=== PATIENT | female | born 1995 | race African-American/Black ===

== ENCOUNTER → 2017-09-22 | Outpatient (CLI) | payer OTHER ==
[2017-09-22 13:45] LABS: BASO % 0.4 % (0.0-1.0); EOS % 0.5 % (0.0-3.0); IMMATURE GRANULOCYTE % 0.2 % (0-0); LYMPH # 1.8 10^3/uL (1.5-6.5); LYMPH % 21.4 % (24.0-44.0); MEAN CORPUSCULAR HEMOGLOBIN 29.9 pg (27.0-33.0); MEAN CORPUSCULAR HGB CONC 33.7 g/dl (32.0-36.5); MEAN CORPUSCULAR VOLUME 88.7 fl (80.0-96.0); MONO # 0.6 10^3/uL (0.0-0.8); MONO % 7.3 % (0.0-5.0); NEUTROPHILS # 5.8 10^3/uL (1.8-7.7); NEUTROPHILS % 70.2 % (36.0-66.0); PLATELET COUNT, AUTOMATED 231 10^3/uL (150-450); RED CELL DISTRIBUTION WIDTH 11.9 % (11.5-14.5)
[2017-09-22 14:35] LABS: HBsAg Prenatal NEGATIVE (NEGATIVE)
[2017-09-24 10:28] LABS: WHITE BLOOD COUNT 8.3 10^3/uL (4.0-10.0)
== END ==
LOC: M LAB 12:44
PROVIDERS: ATTEND Specialist
DX: Z3A.14 14 weeks gestation of pregnancy (principal)

== ENCOUNTER → 2017-10-10 | Outpatient (CLI) | payer OTHER ==
[2017-10-10 18:56] LABS: ALT/SGPT 9 U/L (12-78); AST/SGOT 4 U/L (7-37); BILIRUBIN,TOTAL 0.2 MG/DL (0.2-1.0); CREATININE FOR GFR 0.43 MG/DL (0.55-1.02); GLOMERULAR FILTRATION RATE > 60.0 (>60); URIC ACID 2.9 MG/DL (2.6-6.0)
== END ==
LOC: M SMT 14:53
PROVIDERS: ATTEND Specialist
DX: Z34.82 Encounter for supervision of other normal pregnancy, second trimester (principal)

== ENCOUNTER → 2017-10-17 | Outpatient (CLI) | payer OTHER ==
--- NOTE | 2017-10-17 17:17 | REP ---
HISTORY: anatomy. COMPARISON: None. Multiple sonographic images of the gravid uterus show a single living intrauterine gestation in the tyler breech presentation. Doppler interrogation of the heart shows the heart rate 163 beats per minute. The placenta is anterior and not low lying. The subjective amniotic fluid volume is within normal limits. The cervix measures 3 cm in length and is closed. Evaluation of the maternal adnexal spaces show on abnormalities. BPD 4.6 cm = 20 weeks 0 days HC 16.1 cm = 18 weeks 6 days AC 14.4 cm = 19 weeks 5 days FL 2.9 cm = 19 weeks 2 days Estimated weight is 290 grams which is at the 66th percentile for an 18 week 6 day gestational age. Structures visualized as unremarkable are as follows: Thalami, cavum septum pellucidum, cerebellum, cisterna magna, cerebral ventricles, facial features, particularly upper lip, spine, kidneys, urinary bladder, stomach, four chamber heart, ventricular outflow tracts, three-vessel umbilical cord, cord insertion and upper and lower extremities. IMPRESSION: Single living intrauterine gestation as described above with an estimated gestational age of 19 weeks 4 days via composite criteria with an estimated date of delivery of 03/09/2018 by today's examination. No anomalies were detected. Signed by Basim Tomas DO 10/17/2017 07:07 P
== END ==
LOC: M RAD 14:43 → EDUNIT# 15:00
PROVIDERS: ATTEND Specialist
DX: Z34.82 Encounter for supervision of other normal pregnancy, second trimester (principal)

== ENCOUNTER → 2017-11-20 | Outpatient (REF) | payer OTHER | LOC: M LAB REF 18:16 | DX: O09.292 Supervision of pregnancy with other poor reproductive or obstetric history, second trimester (principal) ==

== ENCOUNTER → 2017-12-08 | Outpatient (CLI) | payer OTHER ==
[2017-12-08 13:50] LABS: HEMATOCRIT 31.4 % (36.0-47.0); HEMOGLOBIN 10.4 g/dl (12.0-16.0); MEAN CORPUSCULAR HEMOGLOBIN 30.8 pg (27.0-33.0); MEAN CORPUSCULAR HGB CONC 33.1 g/dl (32.0-36.5); MEAN CORPUSCULAR VOLUME 92.9 fl (80.0-96.0); PLATELET COUNT, AUTOMATED 171 10^3/uL (150-450); RED BLOOD COUNT 3.38 10^6/uL (4.00-5.40); RED CELL DISTRIBUTION WIDTH 12.8 % (11.5-14.5); WHITE BLOOD COUNT 10.5 10^3/uL (4.0-10.0)
[2017-12-08 14:28] LABS: GLUCOSE CHALLENGE TEST 1 HOUR 95 MG/DL (LESS THAN 140)
== END ==
LOC: M SMT 09:40
DX: Z34.82 Encounter for supervision of other normal pregnancy, second trimester (principal)
CPT/HCPCS: 82950

== ENCOUNTER 2017-12-17 21:33 | Outpatient (CLI) | payer OTHER ==
[2017-12-17 23:14] LABS: HEMATOCRIT 30.1 % (36.0-47.0); MEAN CORPUSCULAR HEMOGLOBIN 30.9 pg (27.0-33.0); MEAN CORPUSCULAR HGB CONC 33.2 g/dl (32.0-36.5); MEAN CORPUSCULAR VOLUME 92.9 fl (80.0-96.0); PLATELET COUNT, AUTOMATED 196 10^3/uL (150-450); RED BLOOD COUNT 3.24 10^6/uL (4.00-5.40); RED CELL DISTRIBUTION WIDTH 12.7 % (11.5-14.5); WHITE BLOOD COUNT 11.8 10^3/uL (4.0-10.0)
[2017-12-17 23:29] LABS: CREATININE,RANDOM URINE 60.5 MG/DL
[2017-12-17 23:29] LABS: TOTAL PROTEIN,RANDOM URINE 10.1 MG/DL (0.0-12.0)
[2017-12-17 23:37] LABS: ALBUMIN 2.8 GM/DL (3.2-5.2); ALKALINE PHOSPHATASE 72 U/L (45-117); ALT/SGPT 16 U/L (12-78); ANION GAP 8 MEQ/L (8-16); AST/SGOT 11 U/L (7-37); BILIRUBIN,TOTAL 0.1 MG/DL (0.2-1.0); BLOOD UREA NITROGEN 7 MG/DL (7-18); CALCIUM LEVEL 8.3 MG/DL (8.5-10.1); CARBON DIOXIDE LEVEL 25 MEQ/L (21-32); CHLORIDE LEVEL 107 MEQ/L (98-107); CREATININE FOR GFR 0.38 MG/DL (0.55-1.30); GLOMERULAR FILTRATION RATE > 60.0 (>60); GLUCOSE, FASTING 82 MG/DL (70-100); LDH LACTATE DEHYDROGENASE 109 U/L (84-246); POTASSIUM SERUM 3.9 MEQ/L (3.5-5.1); SODIUM LEVEL 140 MEQ/L (136-145); TOTAL PROTEIN 6.3 GM/DL (6.4-8.2); URIC ACID 3.1 MG/DL (2.6-6.0)
== END 2017-12-18 00:50 | disposition home or self-care (01) ==
LOC: M LDO 21:33
DX: O26.893 Other specified pregnancy related conditions, third trimester (principal); Z3A.28 28 weeks gestation of pregnancy; R03.0 Elevated blood-pressure reading, without diagnosis of hypertension
CPT/HCPCS: 59025

== ENCOUNTER → 2017-12-18 | Outpatient (CLI) | payer OTHER | LOC: M RAD 14:47 | DX: Z36.9 Encounter for antenatal screening, unspecified (principal); Z3A.27 27 weeks gestation of pregnancy | CPT/HCPCS: 76816 ==

== ENCOUNTER 2018-01-01 17:36 | Outpatient (CLI) | payer OTHER ==
[2018-01-01] MEDS: ACETAMINOPHEN 500 MG TAB PO (18:31)
[2018-01-01 18:57] LABS: HEMATOCRIT 31.8 % (36.0-47.0); HEMOGLOBIN 10.5 g/dl (12.0-16.0); MEAN CORPUSCULAR VOLUME 90.9 fl (80.0-96.0); PLATELET COUNT, AUTOMATED 205 10^3/uL (150-450); RED CELL DISTRIBUTION WIDTH 12.3 % (11.5-14.5); WHITE BLOOD COUNT 13.8 10^3/uL (4.0-10.0)
[2018-01-01 19:11] LABS: TOTAL PROTEIN,RANDOM URINE 20.9 MG/DL (0.0-12.0)
[2018-01-01 19:11] LABS: CREATININE,RANDOM URINE 78.3 MG/DL
[2018-01-01 19:19] LABS: ALT/SGPT 14 U/L (12-78); AST/SGOT 14 U/L (7-37); BILIRUBIN,TOTAL 0.1 MG/DL (0.2-1.0); GLOMERULAR FILTRATION RATE > 60.0 (>60); LDH LACTATE DEHYDROGENASE 154 U/L (84-246)
== END 2018-01-01 20:25 | disposition home or self-care (01) ==
LOC: M LDO 17:36
DX: O99.89 Other specified diseases and conditions complicating pregnancy, childbirth and the puerperium (principal); R51 Headache; R42 Dizziness and giddiness; Z87.59 Personal history of other complications of pregnancy, childbirth and the puerperium; Z3A.30 30 weeks gestation of pregnancy
CPT/HCPCS: 59025

== ENCOUNTER → 2018-01-06 | Outpatient (CLI) | payer OTHER | LOC: M RAD 13:36 | DX: O14.03 Mild to moderate pre-eclampsia, third trimester (principal) ==

== ENCOUNTER → 2018-01-10 | Outpatient (CLI) | payer OTHER ==
[2018-01-10 20:11] LABS: CREATININE, SERUM 0.4 MG/DL (0.6-1.0)
[2018-01-10 20:20] LABS: CREATININE CLEARANCE, URINE 177.8 ML/MIN (75-115); TOTAL PROTEIN 24 HOUR URINE 203.2 MG/24HR (50-150); URINE TOTAL PROTEIN 25.4 MG/DL (0-12)
[2018-01-12 10:42] LABS: TOTAL VOLUME, URINE 800 ML
== END ==
LOC: M LAB 17:42
DX: O14.03 Mild to moderate pre-eclampsia, third trimester (principal)

== ENCOUNTER → 2018-01-16 | Outpatient (CLI) | payer OTHER | LOC: M RAD 14:26 | DX: O14.03 Mild to moderate pre-eclampsia, third trimester (principal) ==

== ENCOUNTER → 2018-01-23 | Outpatient (CLI) | payer OTHER | LOC: M RAD 15:52 | DX: O14.03 Mild to moderate pre-eclampsia, third trimester (principal); Z3A.33 33 weeks gestation of pregnancy | CPT/HCPCS: 76815 ==

== ENCOUNTER 2018-01-25 23:09 | Inpatient (IN) | payer OTHER ==
[2018-01-25 23:54] LABS: HEMATOCRIT 28.5 % (36.0-47.0); HEMOGLOBIN 9.6 g/dl (12.0-16.0); MEAN CORPUSCULAR HEMOGLOBIN 30.2 pg (27.0-33.0); MEAN CORPUSCULAR HGB CONC 33.7 g/dl (32.0-36.5); MEAN CORPUSCULAR VOLUME 89.6 fl (80.0-96.0); PLATELET COUNT, AUTOMATED 198 10^3/uL (150-450); RED BLOOD COUNT 3.18 10^6/uL (4.00-5.40); RED CELL DISTRIBUTION WIDTH 11.9 % (11.5-14.5)
[2018-01-26] MEDS: LR 1,000 ML IV ×2 (00:05→12:45)
[2018-01-26] MEDS: BETAMETHASONE SOLUSPAN 6MG/ML INJ 5ML (J0702) IM ×2 (00:05→23:51)
[2018-01-26] MEDS: MAG Sulf (L&D) 4 GM/100 ML 4 GM in APPROPRIATE DILUENT 1 EA IV (00:15)
[2018-01-26 00:20] LABS: CREATININE,RANDOM URINE 71.2 MG/DL
[2018-01-26 00:21] LABS: ALT/SGPT 14 U/L (12-78); AST/SGOT 16 U/L (7-37); BILIRUBIN,TOTAL 0.2 MG/DL (0.2-1.0); CREATININE FOR GFR 0.47 MG/DL (0.55-1.30); GLOMERULAR FILTRATION RATE > 60.0 (>60); LDH LACTATE DEHYDROGENASE 145 U/L (84-246); URIC ACID 3.8 MG/DL (2.6-6.0)
[2018-01-26] MEDS: LABETALOL HCL 100 MG/20 ML VIAL IV (00:42)
[2018-01-26] MEDS: MAG Sulf (OBGYN) 20GM/500ML 20,000 MG in APPROPRIATE DILUENT 1 EA IV ×2 (01:21→11:32)
[2018-01-27] MEDS: LR 1,000 ML IV (02:45)
[2018-01-27] MEDS ORDERED: PENICILLIN G POTASSIUM IV 5 MU in D5W MINI-BAG PLUS 100 ML IV (22:50)
[2018-01-27] MEDS: miSOPROStol 50 MCG 1/2 TAB (S0191) PO (23:28)
[2018-01-28] MEDS ORDERED: PENICILLIN G POTASSIUM IV 2.5 MU in APPROPRIATE DILUENT 1 EA IV (03:00)
[2018-01-28] MEDS: miSOPROStol 50 MCG 1/2 TAB (S0191) PO ×2 (03:36→07:30)
[2018-01-28] MEDS: PRENATAL VITAMINS CHEWABLE TABLET PO (09:00)
[2018-01-28] MEDS ORDERED: OXYTOCIN 30 UNITS IN 0.9% NaCl 500ML IV BAG (J2590) As Ordered (11:26)
[2018-01-28 12:05] LABS: CORD GAS ABE A -0.1; CORD GAS ABE V -0.1; CORD GAS HCO3 A 27.1 MEQ/L; CORD GAS HCO3 V 24.4 MEQ/L; CORD GAS O2 SAT A 20.7 %; CORD GAS O2 SAT V 65.6 %; CORD GAS PCO2 A 54.4 mmHg; CORD GAS PCO2 V 39.4 mmHg; CORD GAS PH A 7.316 UNITS; CORD GAS PH V 7.409 UNITS; CORD GAS PO2 A 13.4 mmHg; CORD GAS PO2 V 27.2 mmHg; CORD GAS SBC A 22.4 MEQ/L; CORD GAS SBC V 23.5 MEQ/L; CORD GAS TCO2 A 28.8 MEQ/L; CORD GAS TCO2 V 25.6 MEQ/L
[2018-01-28] MEDS: OXYTOCIN DRIP 30 UNITS in APPROPRIATE DILUENT 1 EA IV (12:08)
[2018-01-28] MEDS ORDERED: RHOGAM 300 MCG (1500 IU) INJ (J2790) IM (12:15)
[2018-01-28] MEDS ORDERED: MEASLES,MUMPS,RUBELLA VACCINE INJ (MMR-II) (90707) SC (12:15)
[2018-01-28] MEDS: LIDOCAINE 1% MDV 20ML VIAL INFIL (12:15)
[2018-01-28] MEDS ORDERED: DIBUCAINE 1% OINTMENT 30GM TOP (12:15)
[2018-01-28] MEDS ORDERED: ANUSOL HC CREAM 30GM TOP (12:15)
[2018-01-28] MEDS ORDERED: MOM 30ML SUSPENSION UDC PO (12:15)
[2018-01-28] MEDS ORDERED: METHYLERGONOVINE MALEATE 0.2 MG TAB PO (12:15)
[2018-01-28] MEDS ORDERED: DOCUSATE SODIUM 100 MG CAP PO (12:15)
[2018-01-28] MEDS ORDERED: ACETAMINOPHEN 500 MG TAB PO (12:15)
[2018-01-28] MEDS ORDERED: IBUPROFEN 800 MG TAB PO (12:15)
[2018-01-28] MEDS: LABETALOL 100 MG TAB PO ×2 (13:49→20:21)
[2018-01-29] MEDS: LABETALOL HCL 100 MG/20 ML VIAL IV (03:36)
[2018-01-29] MEDS: LABETALOL 200 MG TAB PO ×3 (06:22→21:17)
[2018-01-29 07:12] LABS: HEMATOCRIT 30.3 % (36.0-47.0); HEMOGLOBIN 9.8 g/dl (12.0-16.0); MEAN CORPUSCULAR HEMOGLOBIN 28.5 pg (27.0-33.0); MEAN CORPUSCULAR HGB CONC 32.3 g/dl (32.0-36.5); MEAN CORPUSCULAR VOLUME 88.1 fl (80.0-96.0); PLATELET COUNT, AUTOMATED 206 10^3/uL (150-450); RED BLOOD COUNT 3.44 10^6/uL (4.00-5.40); RED CELL DISTRIBUTION WIDTH 11.9 % (11.5-14.5); WHITE BLOOD COUNT 17.2 10^3/uL (4.0-10.0)
[2018-01-29 07:58] LABS: ALT/SGPT 19 U/L (12-78); AST/SGOT 26 U/L (7-37); BILIRUBIN,TOTAL 0.2 MG/DL (0.2-1.0); CREATININE FOR GFR 0.56 MG/DL (0.55-1.30); GLOMERULAR FILTRATION RATE > 60.0 (>60); LDH LACTATE DEHYDROGENASE 242 U/L (84-246); URIC ACID 4.2 MG/DL (2.6-6.0)
[2018-01-29] MEDS: PRENATAL VITAMINS CHEWABLE TABLET PO (08:49)
[2018-01-29] MEDS ORDERED: INFLUENZA QUADRIVALENT PF VACCINE 0.5ML SYRINGE (90686) IM (09:00)
[2018-01-30] MEDS: PRENATAL VITAMINS CHEWABLE TABLET PO (09:38)
[2018-01-30] MEDS: LABETALOL 200 MG TAB PO (09:38)
[2018-01-30] MEDS: INFLUENZA QUADRIVALENT PF VACCINE 0.5ML SYRINGE (90686) IM (09:51)
== END 2018-01-30 10:05 | disposition home or self-care (01) | DRG 775 ==
LOC: M LDO 23:09 → M LDI 01-27 08:07 → M OBS 01-28 14:46
PROVIDERS: Advanced Practice Midwife
PROC: 3E0DXGC Introduction of Other Therapeutic Substance into Mouth and Pharynx, External Approach (ICD-10-PCS; 2018-01-27)
PROC: 10E0XZZ Delivery of Products of Conception, External Approach (ICD-10-PCS; principal; 2018-01-28)
PROC: 0HQ9XZZ Repair Perineum Skin, External Approach (ICD-10-PCS; 2018-01-28)
DX: O14.14 Severe pre-eclampsia complicating childbirth (principal); O60.14X0 Preterm labor third trimester with preterm delivery third trimester, not applicable or unspecified; Z3A.33 33 weeks gestation of pregnancy; O70.0 First degree perineal laceration during delivery; Z37.0 Single live birth